=== PATIENT | female | born 1980 | race Caucasian/White ===

== ENCOUNTER 2019-01-20 19:53 | Emergency (ER) | payer MEDICAID, OTHER ==
[~2019-01-20] VITALS: Ht 165.1 cm; Wt 97.0 kg
[2019-01-20 21:32] VITALS: BP 134/68
== END 2019-01-20 21:51 | disposition home or self-care (01) ==
LOC: ED 20:40
DX: H81.393 Other peripheral vertigo, bilateral (principal); H83.03 Labyrinthitis, bilateral
CPT/HCPCS: 93005; 99283

== ENCOUNTER 2019-09-04 22:39 | Emergency (ER) | payer OTHER ==
[~2019-09-04] VITALS: Ht 165.1 cm; Wt 106.3 kg
[2019-09-04 22:41] VITALS: BP 153/72
== END 2019-09-04 23:51 | disposition home or self-care (01) ==
LOC: ED 23:10
DX: B34.9 Viral infection, unspecified (principal)
CPT/HCPCS: 71046; 99283